=== PATIENT | female | born 1975 | race Hispanic/Latino ===

== ENCOUNTER → 2017-12-16 | Outpatient (CLI) | payer OTHER, MEDICARE | END | disposition home or self-care (01) | LOC: OIH 10:13 | PROVIDERS: ATTEND Family Medicine | DX: M17.11 Unilateral primary osteoarthritis, right knee (principal); M19.071 Primary osteoarthritis, right ankle and foot | CPT/HCPCS: 73590 ==

== ENCOUNTER → 2019-10-30 | Outpatient (CLI) | payer OTHER, MEDICARE | END | disposition home or self-care (01) | LOC: RAH 16:38 | PROVIDERS: ATTEND Family Medicine | DX: M25.512 Pain in left shoulder (principal); Z95.0 Presence of cardiac pacemaker | CPT/HCPCS: 73030 ==